=== PATIENT | female | born 1945 | race Caucasian/White ===

== ENCOUNTER → 2021-03-11 11:13 | Outpatient (CLI) | payer MEDICARE, OTHER, SELFPAY ==
--- NOTE | 2021-03-11 | DI.CT.S_ITS ---
PROCEDURE: CT PEL WO CON INDICATIONS: PAIN RIGHT PUBIC RAMUS TECHNIQUE: Noncontrast 3 mm axial sections acquired through the bony pelvis, with coronal and sagittal reformatting. COMPARISON: [facility] ([facility]), CR, XR HIP W PEL IF DONE RT 2V, 12/17/2020, 11:09. FINDINGS: Image quality: Excellent. Bones: There is a subacute appearing nondisplaced fracture involving right inferior pubic ramus. Very subtle nondisplaced fracture involving lateral portion of right superior pubic ramus is also likely present. Callus formation surrounding right inferior pubic ramus fracture site is noted. No other fracture or dislocation. 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 No evidence of avascular necrosis of femoral head. Degenerative disc disease in visualized lower lumbar spine is seen. Soft tissues: There is no pelvic free fluid or free air. Bowel wall thickness is normal. Bladder wall thickness is normal. No pelvic lymphadenopathy by size criteria. Mild soft tissue edema and swelling surrounding right inferior pubic ramus fracture site is seen. No abnormal soft tissue calcifications are seen. IMPRESSION: 1. Subacute appearing nondisplaced fractures involving right superior and inferior pubic rami with adjacent callus formation and mild soft tissue swelling. 2. No other pelvic or hip fracture. No hip dislocation. No evidence of avascular necrosis of femoral head. Dictated by: Jadon Hernandez M.D. on 03/11/2021 at 11:59 Approved by: Jadon Hernandez M.D. on 03/11/2021 at 12:02
== END ==
PROVIDERS: PCP Physician Assistant Medical; Referring Provider Family Medicine; Visit Provider Family Medicine
DX: M25.551 Pain in right hip (principal); S32.591A Other specified fracture of right pubis, initial encounter for closed fracture; M79.89 Other specified soft tissue disorders
CPT/HCPCS: 72192